=== PATIENT | female | born 2000 | race Caucasian/White ===

== ENCOUNTER 2021-08-20 16:14 | Inpatient (IN) ==
--- NOTE | 2021-08-20 16:25 | Emergency Department Note ---
Impression & Plan Depression with suicidal ideation, Anxiety ED Provider Note NAME: NICK LEIGH AGE: 21 SEX: F : 2000 ARRIVES VIA: Walk-In INFORMANT: Patient, ED PROVIDER(S): Miller Lacy MD Chief Complaint: Depressed mood, SI HPI: Patient presents with the above symptoms. The patient states that a week ago she did have the final bit of a more prolonged break-up. Patient states that even prior to this though that she has had a depressed mood and was recently diagnosed from a therapist with that and associated anxiety. Patient is to graduate this semester and then is also had some familial issues as the pa katelyn's mother has renal cell carcinoma in her father may be developing signs of mental illness and paranoia. Patient has complained of depressed mood as well as SI. She is thought about walking in front of moving vehicles. The patient has not tried to harm her self before. The patient denies any chest pains or shortness of breath. The patient denies any HI or AVH. The patient does admit to poor sleep and appetite. Patient denies any alcohol tobacco or drug use. Patient does not currently take any medications. ROS: See HPI for pertinent positives and negatives. A total of 10 systems were reviewed and otherwise negative. Past medical history: See below Surgical history: See below Social history: See below Physical Exam: GENERAL: NAD, wearing glasses, wearing a mask, non-toxic. EYE EXAM: Normal conjunctiva. PERRL, no anisocoria and EOM's grossly intact w/o pain. NECK: Supple, no nuchal rigidity, no adenopathy, non-tender. No signs of meningismus. LUNGS: Clear to auscultation. Normal chest wall mechanics. HEART: NSR, no MRG. ABDOMEN: Abdomen soft, non-tender, normo-active bowel sounds, no masses, no rebound or guarding. BACK: No CVA TTP. SKIN: No rashes and no bruising. UPPER EXTREMITIES: Upper extremities are grossly normal. LOWER EXTREMITIES: Grossly normal, no edema. NEURO EXAM: A&O x3, cranial nerves II-XII grossly intact, normal speech, moves all 4 extremities on command w/o issue. Psych: Positive SI, negative HI or AVH. Mildly anxious. Differential diagnoses: Mood disorder, infection, hypoglycemia, electrolyte abnormalities, cardiac sources, intracerebral event, toxicologic, trauma, neurologic, as well as other pathologies. Course: Patient was seen and evaluated the bedside. Full history physical exam was performed. MDM: Patient was seen for mental wellness. The patient was deemed medically cleared seen and evaluated by the psych insurance case manager. Was recommended the patient receive inpatient treatment giving her history. Patient was evaluated by 3 S. and admitted to inpatient psychiatry. Past Med/Surg History Medical History Anxiety MDD (major depressive disorder) Surgical History No pertinent past surgical history Social History Smoking Status: Never smoker Preferred Language: Belarusian Feels Safe at Home: Yes Allergies Allergies Allergy/AdvReac Type Severity Reaction Status Date / Time No Known Allergies Allergy Unverified 08/20/21 16:39 Home Meds Home Medications Medication Instructions Recorded Confirmed No Known Home Medications 08/20/21 08/20/21 Results & Data (ED) Vital Signs Vital Signs - 24 hr 08/20/21 16:17 Temperature 36.7 C Temperature Source Temporal Artery Scan Pulse Rate 86 Pulse Rhythm Regular Pulse Strength Normal Respiratory Rate 20 Respiratory Effort / Characteristics Non-Labored Spontaneous Respiratory Depth Normal Respiratory Pattern Regular Blood Pressure 125/88 Blood Pressure Mean 100 Blood Pressure Position Sitting Pulse Oximetry 94 Oxygen Delivery Method Room Air Sepsis Recent Fever Within 48 Hours No Sepsis New/Unexplained Change in Mental Status No Sepsis Action Taken by Nursing No Action Required Home Medications Current Medication List: was personally reviewed by me Laboratory Data Attestation: I reviewed the patient's lab results. Result diagrams: 08/20/21 17:30 08/20/21 17:30 Lab Results 08/20/21 08/20/21 08/20/21 Range/Units 16:32 16:32 16:32 WBC (4.8-10.8) K/uL RBC (4.2-5.4) M/uL Hgb (12.0-16.0) g/dL Hct (37-47) % MCV (80-100) fL MCH (25-34) pg MCHC (32-36) g/dL RDW Std Deviation (36.4-46.3) fL RDW Coeff of Ward (11.5-14.5) % Plt Count (130-400) K/uL MPV (7.4-10.4) fL Immature Gran % (Auto) % Neut % (Auto) % Lymph % (Auto) % [place] % (Auto) % Eos % (Auto) % Baso % (Auto) % Neut # (Auto) (1.4-6.5) K/uL Lymph # (Auto) (1.2-3.4) K/uL [place] # (Auto) (0.11-0.59) K/uL Eos # (Auto) (0-0.5) K/uL Baso # (Auto) (0-0.2) K/uL Immature Gran # (Auto) (0.00-0.02) K/uL Sodium (136-145) mmol/L Potassium (3.5-5.1) mmol/L Chloride (98-107) mmol/L Carbon Dioxide (21-32) mmol/L Anion Gap (3-11) BUN (6-23) mg/dl Creatinine (0.6-1.2) mg/dl Est Cr Clr Drug Dosing ml/min Est GFR ( Amer) ml/min Est GFR (Non-Af Amer) ml/min BUN/Creatinine Ratio (10-20) Glucose (70-99(Fasting)) mg/dl Calcium (8.5-10.1) mg/dl Total Bilirubin (0.2-1.0) mg/dl AST (13-39) U/L ALT (7-52) U/L Alkaline Phosphatase (34-104) U/L Total Protein (6.0-8.3) gm/dl Albumin (3.4-5.0) gm/dl Globulin (2.5-4.0) gm/dl Albumin/Globulin Ratio (0.9-2) TSH (0.300-4.500) uIu/ml Urine Color Yellow Urine Appearance Clear (Clear) Urine pH 7.5 (4.5-7.5) Ur Specific [place] 1.003 (1.000-1.030) Urine Protein Negative (Negative) Urine Glucose (UA) Negative (Negative) Urine Ketones Negative (Negative) Urine Blood 3+ H (Negative) Urine Nitrite Negative (Negative) Urine Bilirubin Negative (Negative) Urine Urobilinogen Negative (Negative) Ur Leukocyte Esterase Negative (Negative) Urine WBC (Auto) 0 (0-5) /hpf Urine RBC (Auto) 0-4 (0-4) /hpf U Hyaline Cast (Auto) 0 (0-5) /lpf U Epithel Cells (Auto) 10-20 H (0-5) /lpf Urine Bacteria (Auto) Negative (Negative) Urine Test (Negative) Salicylates (3.0-30) mg/dl Urine Opiates Screen Neg (Neg) Ur Methadone, Qual Neg (Neg) Acetaminophen (10-30) ug/ml Urine Barbiturates Neg (Neg) Ur Phencyclidine (PCP) Neg (Neg) U Amphetamin/Meth Scrn Neg (Neg) MDMA (Ecstasy) Screen Neg (Neg) U Benzodiazepines Scrn Neg (Neg) Ur Cocaine Metabolite Neg (Neg) U Marijuana (THC) Screen Neg (Neg) Ethyl Alcohol mg/dL (<10.0) mg/dl SARS-CoV-2, RNA, NAAT NEGATIVE (NEGATIVE) 08/20/21 08/20/21 08/20/21 Range/Units 16:32 17:30 17:30 WBC 4.60 L (4.8-10.8) K/uL RBC 4.86 (4.2-5.4) M/uL Hgb 14.2 (12.0-16.0) g/dL Hct 42.5 (37-47) % MCV 87.4 (80-100) fL MCH 29.2 (25-34) pg MCHC 33.4 (32-36) g/dL RDW Std Deviation 44.2 (36.4-46.3) fL RDW Coeff of [place] 13.8 (11.5-14.5) % Plt Count 240 (130-400) K/uL MPV 10.1 (7.4-10.4) fL Immature Gran % (Auto) 0.0 % Neut % (Auto) 53.7 % Lymph % (Auto) 34.6 % [place] % (Auto) 10.0 % Eos % (Auto) 1.3 % Baso % (Auto) 0.4 % Neut # (Auto) 2.47 (1.4-6.5) K/uL Lymph # (Auto) 1.59 (1.2-3.4) K/uL [place] # (Auto) 0.46 (0.11-0.59) K/uL Eos # (Auto) 0.06 (0-0.5) K/uL Baso # (Auto) 0.02 (0-0.2) K/uL Immature Gran # (Auto) 0.00 (0.00-0.02) K/uL Sodium 139 (136-145) mmol/L Potassium 3.8 (3.5-5.1) mmol/L Chloride 103 (98-107) mmol/L Carbon Dioxide 28 (21-32) mmol/L Anion Gap 8 (3-11) BUN 8 (6-23) mg/dl Creatinine 0.82 (0.6-1.2) mg/dl Est Cr Clr Drug Dosing 104.6 ml/min Est GFR ( Amer) 117.7 ml/min Est GFR (Non-Af Amer) 101.6 ml/min BUN/Creatinine Ratio 9.8 L (10-20) Glucose 91 (70-99(Fasting)) mg/dl Calcium 9.7 (8.5-10.1) mg/dl Total Bilirubin 0.3 (0.2-1.0) mg/dl AST 13 (13-39) U/L ALT 14 (7-52) U/L Alkaline Phosphatase 46 (34-104) U/L Total Protein 7.4 (6.0-8.3) gm/dl Albumin 4.5 (3.4-5.0) gm/dl Globulin 2.9 (2.5-4.0) gm/dl Albumin/Globulin Ratio 1.6 (0.9-2) TSH (0.300-4.500) uIu/ml Urine Color Urine Appearance (Clear) Urine pH (4.5-7.5) Ur Specific [place] (1.000-1.030) Urine Protein (Negative) Urine Glucose (UA) (Negative) Urine Ketones (Negative) Urine Blood (Negative) Urine Nitrite (Negative) Urine Bilirubin (Negative) Urine Urobilinogen (Negative) Ur Leukocyte Esterase (Negative) Urine WBC (Auto) (0-5) /hpf Urine RBC (Auto) (0-4) /hpf U Hyaline Cast (Auto) (0-5) /lpf U Epithel Cells (Auto) (0-5) /lpf Urine Bacteria (Auto) (Negative) Urine Test Negative (Negative) Salicylates (3.0-30) mg/dl Urine Opiates Screen (Neg) Ur Methadone, Qual (Neg) Acetaminophen (10-30) ug/ml Urine Barbiturates (Neg) Ur Phencyclidine (PCP) (Neg) U Amphetamin/Meth Scrn (Neg) MDMA (Ecstasy) Screen (Neg) U Benzodiazepines Scrn (Neg) Ur Cocaine Metabolite (Neg) U Marijuana (THC) Screen (Neg) Ethyl Alcohol mg/dL (<10.0) mg/dl SARS-CoV-2, RNA, NAAT (NEGATIVE) 08/20/21 08/20/21 08/20/21 Range/Units 17:30 17:30 17:30 WBC (4.8-10.8) K/uL RBC (4.2-5.4) M/uL Hgb (12.0-16.0) g/dL Hct (37-47) % MCV (80-100) fL MCH (25-34) pg MCHC (32-36) g/dL RDW Std Deviation (36.4-46.3) fL RDW Coeff of Ward (11.5-14.5) % Plt Count (130-400) K/uL MPV (7.4-10.4) fL Immature Gran % (Auto) % Neut % (Auto) % Lymph % (Auto) % [place] % (Auto) % Eos % (Auto) % Baso % (Auto) % Neut # (Auto) (1.4-6.5) K/uL Lymph # (Auto) (1.2-3.4) K/uL [place] # (Auto) (0.11-0.59) K/uL Eos # (Auto) (0-0.5) K/uL Baso # (Auto) (0-0.2) K/uL Immature Gran # (Auto) (0.00-0.02) K/uL Sodium (136-145) mmol/L Potassium (3.5-5.1) mmol/L Chloride (98-107) mmol/L Carbon Dioxide (21-32) mmol/L Anion Gap (3-11) BUN (6-23) mg/dl Creatinine (0.6-1.2) mg/dl Est Cr Clr Drug Dosing ml/min Est GFR ( Amer) ml/min Est GFR (Non-Af Amer) ml/min BUN/Creatinine Ratio (10-20) Glucose (70-99(Fasting)) mg/dl Calcium (8.5-10.1) mg/dl Total Bilirubin (0.2-1.0) mg/dl AST (13-39) U/L ALT (7-52) U/L Alkaline Phosphatase (34-104) U/L Total Protein (6.0-8.3) gm/dl Albumin (3.4-5.0) gm/dl Globulin (2.5-4.0) gm/dl Albumin/Globulin Ratio (0.9-2) TSH 1.699 (0.300-4.500) uIu/ml Urine Color Urine Appearance (Clear) Urine pH (4.5-7.5) Ur Specific [place] (1.000-1.030) Urine Protein (Negative) Urine Glucose (UA) (Negative) Urine Ketones (Negative) Urine Blood (Negative) Urine Nitrite (Negative) Urine Bilirubin (Negative) Urine Urobilinogen (Negative) Ur Leukocyte Esterase (Negative) Urine WBC (Auto) (0-5) /hpf Urine RBC (Auto) (0-4) /hpf U Hyaline Cast (Auto) (0-5) /lpf U Epithel Cells (Auto) (0-5) /lpf Urine Bacteria (Auto) (Negative) Urine Test (Negative) Salicylates < 3.0 L (3.0-30) mg/dl Urine Opiates Screen (Neg) Ur Methadone, Qual (Neg) Acetaminophen < 3 L (10-30) ug/ml Urine Barbiturates (Neg) Ur Phencyclidine (PCP) (Neg) U Amphetamin/Meth Scrn (Neg) MDMA (Ecstasy) Screen (Neg) U Benzodiazepines Scrn (Neg) Ur Cocaine Metabolite (Neg) U Marijuana (THC) Screen (Neg) Ethyl Alcohol mg/dL < 10.0 (<10.0) mg/dl SARS-CoV-2, RNA, NAAT (NEGATIVE) Administered Medications Discontinued Medications Lorazepam (Lorazepam 1 Mg Tab) 1 mg SL NOW STA Stop: 08/20/21 17:48 Last Admin: 08/20/21 18:29 Dose: 1 mg Documented by: [id number] Discharge Plan Visit Data Chief Complaint: Mental Health Evaluation Stated Complaint: [facility] ED Provider: Miller Lacy Discharge Problem: Depression with suicidal ideation, Anxiety Forms Stand Alone Forms: [facility], Suicide Prevention Resources Prescriptions Prescriptions: No Action No Known Home Medications RF: 0 Referrals Referrals: PCP,NO [Physician] -
[2021-08-20 17:40] LABS: Appearance Urine Clear (Clear); Bacteria Urine Automated Negative (Negative); Bilirubin Urine Negative (Negative); Blood Urine 3+ (Negative); Cast Urine Automated 0 /lpf (0-5); Color Urine Yellow; Glucose Urine UA Negative (Negative); Ketones Urine Negative (Negative); Leukocyte Esterase Urine Negative (Negative); Nitrite Urine Negative (Negative); Protein Urine Negative (Negative); RBC Urine Automated 0-4 /hpf (0-4); Specific Gravity Urine 1.003 (1.000-1.030); Urobilinogen Urine Negative (Negative); WBC Urine Automated 0 /hpf (0-5); pH Urine 7.5 (4.5-7.5)
[2021-08-20 17:42] LABS: Basophils # (auto) 0.02 K/uL (0-0.2); Basophils % (auto) 0.4 %; Eosinophils # (auto) 0.06 K/uL (0-0.5); Eosinophils % (auto) 1.3 %; Hematocrit (blood only) 42.5 % (37-47); Hemoglobin 14.2 g/dL (12.0-16.0); Lymphocytes # (auto) 1.59 K/uL (1.2-3.4); Lymphocytes % (auto) 34.6 %; Mean Corpuscular Hemoglobin 29.2 pg (25-34); Mean Corpuscular Hgb Conc 33.4 g/dL (32-36); Mean Corpuscular Volume 87.4 fL (80-100); Mean Platelet Volume 10.1 fL (7.4-10.4); Monocytes # (auto) 0.46 K/uL (0.11-0.59); Neutrophils # (auto) 2.47 K/uL (1.4-6.5); Neutrophils % (auto) 53.7 %; Platelet Count 240 K/uL (130-400); RDW Coefficient of Variation 13.8 % (11.5-14.5); RDW Standard Deviation 44.2 fL (36.4-46.3); Red Blood Count 4.86 M/uL (4.2-5.4)
[2021-08-20] MEDS ORDERED: LORazepam 1 MG TAB SL STA (17:47)
[2021-08-20 17:59] LABS: Amphetamines+Metham, Urine Neg (Neg); Barbiturates, Urine Neg (Neg); Benzodiazepine, Urine Neg (Neg); Cocaine, Urine Neg (Neg); MDMA (Ecstacy), Urine Neg (Neg); Methadone, Urine Neg (Neg); Opiate, Urine Neg (Neg); Phencyclidine, Urine Neg (Neg)
[2021-08-20 18:05] LABS: Acetaminophen < 3 ug/ml (10-30); Salicylate < 3.0 mg/dl (3.0-30)
[2021-08-20 18:06] LABS: Albumin Globulin Ratio 1.6 (0.9-2); Albumin Level 4.5 gm/dl (3.4-5.0); BUN Creatinine Ratio 9.8 (10-20); Bilirubin,Total 0.3 mg/dl (0.2-1.0); Calcium 9.7 mg/dl (8.5-10.1); Creatinine Clr Calc Pharmacy 104.6 ml/min; Est GFR (African American) 117.7 ml/min; Est GFR (Non-African American) 101.6 ml/min; Globulin 2.9 gm/dl (2.5-4.0); Potassium 3.8 mmol/L (3.5-5.1); Total Protein 7.4 gm/dl (6.0-8.3)
[2021-08-20 19:36] LABS: Pregnancy Test, Urine Negative (Negative)
[2021-08-20] MEDS ORDERED: BISMUTH SUBSALICYLATE LIQD 236 ML PO PRN (20:04)
[2021-08-20] MEDS ORDERED: ALUMINUM/MAGNESIUM SUSP 30 ML UDC PO PRN (20:04)
[2021-08-20] MEDS ORDERED: MAGNESIUM HYDROXIDE SUSP 30 ML UDC PO PRN (20:04)
[2021-08-20] MEDS ORDERED: SODIUM CHLORIDE 0.65% NA SOLN 45 ML (OCEAN) PRN (20:04)
[2021-08-20] MEDS ORDERED: ACETAMINOPHEN 325 MG TAB PO PRN (20:04)
[2021-08-20] MEDS ORDERED: hydrOXYzine HCl 25 MG TAB PO PRN ×2 (20:04)
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
--- NOTE | 2021-08-22 10:59 | Psychiatric Progress Note ---
Date of Service August 22, 2021 Impression / Recommendations Impression Nick is a 21 yo female with worsening depressive symptoms following a break up and pending life transition. She admitted to thoughts about walking into traffic. Consented to 201 as she did not want to be involuntarily committed and is willing for ongoing stay. Suicide risk level remains moderate, continue suicide checks. 08/22/21: improving (1) Depression with suicidal ideation: (2) Anxiety: 08/22/21: family meeting with mother today, risks/benefits/alternatives reviewed re: SSRIs. Patient is only agreeable to lowest dose of prn Vistaril 10 mg q6 prn as wants to avoid sedation. 08/21/21: The patient was admitted to the [facility] ([facility] mental health unit) on q15 min checks (behavioral with suicide precautions) for safety. The patient will participate in group, recreational, and milieu therapies and will be offered additional individual and family sessions as clinically appropriate. Risks/benefits/alternatives reviewed re: antidepressants for the treatment of depression and/or anxiety. Discussion included but was not limited to FDA warnings re: suicidality in adolescents and young adults. The patient is hoping to avoid medication and would like more time to consider options. Inventory Assets Strengths: intelligent, help seeking Needs: ongoing therapy, safety plan Risk Factors Assessment Do You Have Access To A Gun?: No Mental Health Diagnoses: Yes Substance Use Disorders: No Previous Attempt: No Family History of Suicide: No Previous Psychiatric Hospitalization: No Protective Factors Assessment Employed: No Interval History Identifying Information NICK LEIGH is a 21-year-old F, [employer] senior, was admitted on 08/20/21 20:04 on a 201 voluntary commitment for depression with SI. Chief Complaint "I wrote some stuff out but it's hard". Review of Systems Sleep Information Total Hours of Sleep: 6.5 Sleep Comments: pt on q-15 minute checks Meal Information Percent Meal Consumed - Breakfast: 30 Percent Meal Consumed - Lunch: 100 Percent Meal Consumed - Dinner: 95 Subjective Subjective Patient was seen & assessed and interval progress reviewed with nursing and social work. Cooperative in the [place] but certainly ruminates over past relationships and guilt. Slept 6 1/2 hrs. Still ambivalent about medication per staff. [address] Physical Exam Psychiatric Orientation: alert and oriented x 3 Apperance: appropriately dressed and appropriately groomed Eye Contact: good eye contact Motor Behavior: no abnormal motor movements Speech: normal rate/rhythm/volume of speech Affect: + depressed affect Mood: + depressed mood Thought Process: goal directed thought process Thought Content: reality based without delusions Suicidal Thoughts: denies suicidal plan (on unit) and denies suicidal intent; + reports suicidal thoughts (intermittent, passive) Homicidal Thoughts: denies homicidal thoughts Hallucinations: no auditory hallucinations and no visual hallucinations Cognition: attention grossly intact and language grossly intact Estimated Intelligence: consistent with education level Insight: + limited insight Judgement: + limited judgement Vital Signs (Past 24 Hours) Last Vital Signs Temp 36.8 C 08/22/21 06:19 Pulse 60 08/22/21 06:19 Resp 16 08/22/21 06:19 BP 97/66 L 08/22/21 06:19 Pulse Ox 98 08/22/21 06:19 Results & Data ([facility]) Current Inpatient Medications Current Inpatient Medications: Current Inpatient Medications Acetaminophen (Acetaminophen 325 Mg Tab) 650 mg PO Q4H PRN PRN Reason: Headache or Minor Fever Stop: 09/19/21 20:03 Al Hydrox/Mg Hydrox/Simethicone (Aluminum/Magnesium Susp 30 Ml Udc) 30 ml PO Q4H PRN PRN Reason: GI Upset Stop: 09/19/21 20:03 Bismuth Subsalicylate (Bismuth Subsalicylate Liqd 236 Ml) 15 ml PO PRN PRN PRN Reason: Loose Stool Stop: 09/19/21 20:03 Hydroxyzine HCl (Hydroxyzine Hcl 25 Mg Tab) 50 mg PO HSZ PRN PRN Reason: Insomnia Stop: 09/19/21 20:03 Last Admin: 08/20/21 22:46 Dose: 50 mg Documented by: Hydroxyzine HCl (Hydroxyzine Hcl 25 Mg Tab) 25 mg PO Q4H PRN PRN Reason: Anxiety Stop: 09/19/21 20:03 Magnesium Hydroxide (Magnesium Hydroxide Susp 30 Ml Udc) 30 ml PO DAILY PRN PRN Reason: Constipation Stop: 09/19/21 20:03 Sodium Chloride (Sodium Chloride 0.65% Na Soln 45 Ml ([place])) 1 - 2 sprays NA PRN PRN PRN Reason: Nasal Dryness/Congestion Stop: 09/19/21 20:03 Mental Health & Subst Abuse Tx Psychiatrist Name of Psychiatrist: None Therapist Name of Therapist: Suyapa Garcia Phd Therapist's Therapy Appointment Comment: telehealth Auto Transport Driver Name of Auto Transport Driver: None Post Discharge Appointments Primary Care Physician Name Of Family Doctor: Dr. Solo Hogan MD Primary Care Provider Appointment Comment: [phone] [place] [address]
[2021-08-22] MEDS ORDERED: hydrOXYzine HCl 25 MG TAB PO PRN (13:38)
[2021-08-23] MEDS: hydrOXYzine HCl 10 MG TAB PO PRN (09:25)
--- NOTE | 2021-08-23 16:23 | Psychiatric Progress Note ---
Date of Service August 23, 2021 Impression / Recommendations Impression Nick is a 21 yo female with worsening depressive symptoms following a break up and pending life transition. She admitted to thoughts about walking into traffic. Consented to 201 as she did not want to be involuntarily committed and is willing for ongoing stay. Suicide risk level remains moderate, continue suicide checks. 08/23/21: increased insight into behavioral patterns but remains quite obsessive. (1) Depression with suicidal ideation: (2) Anxiety: 08/23/21: continue safety planning. 08/22/21: family meeting with mother today, risks/benefits/alternatives reviewed re: SSRIs. Patient is only agreeable to lowest dose of prn Vistaril 10 mg q6 prn as wants to avoid sedation. 08/21/21: The patient was admitted to the [facility]) on q15 min checks (behavioral with suicide precautions) for safety. The patient will participate in group, recreational, and milieu therapies and will be offered additional individual and family sessions as clinically appropriate. Risks/benefits/alternatives reviewed re: antidepressants for the treatment of depression and/or anxiety. Discussion included but was not limited to FDA warnings re: suicidality in adolescents and young adults. The patient is hoping to avoid medication and would like more time to consider options. Inventory Assets Strengths: intelligent, help seeking Needs: ongoing therapy, safety plan Risk Factors Assessment Do You Have Access To A Gun?: No Mental Health Diagnoses: Yes Substance Use Disorders: No Previous Attempt: No Family History of Suicide: No Previous Psychiatric Hospitalization: No Protective Factors Assessment Employed: No Interval History Identifying Information NICK LEIGH is a 21-year-old F, [employer] senior, was admitted on 08/20/21 20:04 on a 201 voluntary commitment for depression with SI. Chief Complaint "I realize that codependent means I attract needy people." Review of Systems Sleep Information Total Hours of Sleep: 6.0 Sleep Comments: pt on q-15 minute checks Meal Information Percent Meal Consumed - Breakfast: 100 Percent Meal Consumed - Lunch: 100 Percent Meal Consumed - Dinner: 100 Nutrition Comment: per meal record Subjective Subjective Patient was seen & assessed and interval progress reviewed with treatment team. Remained ambivalent most of the day about rescinding 72 hr notice but ultimately did this afternoon, wants to continue to process and work on safety plan. She did try at least 1 dose of Vistaril 10 mg this am and felt "a little tired but also calmer." Physical Exam Psychiatric Orientation: alert and oriented x 3 Apperance: appropriately dressed and appropriately groomed Eye Contact: good eye contact Motor Behavior: no abnormal motor movements Speech: normal rate/rhythm/volume of speech Affect: + depressed affect Mood: + depressed mood Thought Process: goal directed thought process Thought Content: reality based without delusions Suicidal Thoughts: denies suicidal thoughts, denies suicidal plan and denies suicidal intent Homicidal Thoughts: denies homicidal thoughts Hallucinations: no auditory hallucinations and no visual hallucinations Cognition: attention grossly intact and language grossly intact Estimated Intelligence: consistent with education level Insight: + fair insight Judgement: + fair judgement Vital Signs (Past 24 Hours) Last Vital Signs Temp 36.8 C 08/23/21 06:28 Pulse 94 H 08/23/21 06:29 Resp 16 08/23/21 06:28 BP 94/64 L 08/23/21 06:29 Pulse Ox 98 08/22/21 06:19 Results & Data ([facility]) Current Inpatient Medications Current Inpatient Medications: Current Inpatient Medications Acetaminophen (Acetaminophen 325 Mg Tab) 650 mg PO Q4H PRN PRN Reason: Headache or Minor Fever Stop: 09/19/21 20:03 Al Hydrox/Mg Hydrox/Simethicone (Aluminum/Magnesium Susp 30 Ml Udc) 30 ml PO Q4H PRN PRN Reason: GI Upset Stop: 09/19/21 20:03 Bismuth Subsalicylate (Bismuth Subsalicylate Liqd 236 Ml) 15 ml PO PRN PRN PRN Reason: Loose Stool Stop: 09/19/21 20:03 Hydroxyzine HCl (Hydroxyzine Hcl 10 Mg Tab) 10 mg PO Q6 PRN PRN Reason: Anxiety Stop: 09/21/21 13:36 Last Admin: 08/23/21 09:25 Dose: 10 mg Documented by: Hydroxyzine HCl (Hydroxyzine Hcl 25 Mg Tab) 25 mg PO HSZ PRN PRN Reason: Insomnia Stop: 09/19/21 20:03 Magnesium Hydroxide (Magnesium Hydroxide Susp 30 Ml Udc) 30 ml PO DAILY PRN PRN Reason: Constipation Stop: 09/19/21 20:03 Sodium Chloride (Sodium Chloride 0.65% Na Soln 45 Ml ([place])) 1 - 2 sprays NA PRN PRN PRN Reason: Nasal Dryness/Congestion Stop: 09/19/21 20:03 Mental Health & Subst Abuse Tx Psychiatrist Name of Psychiatrist: None Therapist Name of Therapist: Suyapa Garcia Phd Therapist's Therapy Appointment Comment: standing weekly telehealth appts. Logging Tractor Operator Swamp Name of Logging Tractor Operator Swamp: None Post Discharge Appointments Primary Care Physician Name Of Family Doctor: Dr. Solo Hogan MD Primary Care Provider Appointment Comment: will schedule for self Contact Information Discharge Discharge Address: [address] [place] [address]
[2021-08-24] MEDS: hydrOXYzine HCl 10 MG TAB PO PRN (08:51)
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
== END 2021-08-24 11:58 | disposition home or self-care (01) | DRG 881 ==
LOC: ED 16:14 → 3S 20:04